=== PATIENT | male | born 1965 | race American Indian/Alaskan Native ===

== ENCOUNTER 2020-02-19 17:52 | Inpatient (IN) | payer MEDICAID ==
[~2020-02-19] VITALS: Ht 172.7 cm; Wt 68.2 kg
[~2020-02-19 17:52] MED LIST: CYCL-35 PO; CYCL-394 PO; DOCU-148 PO; HYDR-4383 PO; ONDA4TAB6 PO; PANT-47 PO; RANI-366 PO; ZOF4T PO
--- NOTE | 2020-02-19 17:55 | NUR ---
PAGED STROKE TEAM 17:55
[2020-02-19 18:18] LABS: BASOPHILS # (AUTO) 0.1 X10'3 (0-0.2); BASOPHILS % (AUTO) 1.1 % (0-1); EOSINOPHILS # (AUTO) 0.2 X10'3 (0-0.9); EOSINOPHILS % (AUTO) 2.3 % (0-6); HEMATOCRIT 39.7 % (42.0-52.0); HEMOGLOBIN 13.7 g/dl (14.0-17.9); LYMPHOCYTES # (AUTO) 2.2 X10'3 (1.1-4.8); LYMPHOCYTES % (AUTO) 24.8 % (21-51); MEAN CORPUSCULAR HEMOGLOBIN 31.7 PG (27.0-31.0); MEAN CORPUSCULAR HGB CONC 34.5 g/dL (33.0-36.5); MEAN PLATELET VOLUME 8.5 FL (7.4-10.4); MONOCYTES # (AUTO) 0.7 X10'3 (0-0.9); MONOCYTES % (AUTO) 8.3 % (2-12); NEUTROPHILS # (AUTO) 5.7 X10'3 (1.8-7.7); NEUTROPHILS % (AUTO) 63.5 % (42-75); PLATELET COUNT 302 X10'3 (140-440); RED BLOOD COUNT 4.31 X10'6 (4.70-6.10); RED CELL DISTRIBUTION WIDTH 14.5 % (11.5-14.5); WHITE BLOOD COUNT 8.9 X10'3 (4.5-11.0)
--- NOTE | 2020-02-19 18:20 | NUR ---
Arrived for level 1 stroke alert, last known well was 1630. Patient suddenly could not move and was unable to speak. Initial NIH was a 5 and now a 2. Telemedicine neurology evaluation completed.
[2020-02-19 18:23] LABS: PARTIAL THROMBOPLASTIN TIME 24 SECONDS (22-32)
--- NOTE | 2020-02-19 18:24 | NUR ---
ABDOUL STROKE RN AT BEDSIDE WITH EROS Hart AND PATIENTS SON FOR HX AND INFORMATION, CARMINE
[2020-02-19 18:26] LABS: ALANINE AMINOTRANSFERASE 32 U/L (12-78); ALBUMIN/GLOBULIN RATIO 1.1 (1.1-1.5); ALKALINE PHOSPHATASE 78 IU/L (46-116); ANION GAP 13 (8-16); ASPARTATE AMINO TRANSFERASE 37 U/L (10-37); BILIRUBIN,TOTAL 0.3 MG/DL (0.1-1.0); BLOOD UREA NITROGEN 21 MG/DL (7-18); BUN/CREATININE RATIO 16.2 (5.4-32.0); CALCIUM 8.9 MG/DL (8.5-10.1); CHLORIDE 104 MMOL/L (99-107); GLUCOSE 118 MG/DL (70-104); POTASSIUM 3.7 MMOL/L (3.5-5.1); SODIUM 140 MMOL/L (135-145); TOTAL CARBON DIOXIDE 23.2 MMOL/L (24-32); TOTAL PROTEIN 7.7 G/DL (6.4-8.2); eGFR 57 ML/MIN
--- NOTE | 2020-02-19 18:26 | NUR ---
PATIENT WITH TELE NEUROLOGIST WITH ABDOUL MODI STROKE RN AT BEDSIDE
[2020-02-19 18:29] LABS: TROPONIN I < 0.04 NG/ML (0.0-0.05)
[2020-02-19] MEDS ORDERED: iohexol 350MG/ML 100ml bottle IV ONE (18:39)
[2020-02-19] MEDS ORDERED: ATOR80TA PO (19:21)
[2020-02-19] MEDS ORDERED: FLUO20CA39 PO (19:21)
[2020-02-19] MEDS ORDERED: FERR325T28 PO (19:21)
[2020-02-19] MEDS ORDERED: MV-M1TAB19 PO (19:21)
[2020-02-19] MEDS ORDERED: ATEN-54 PO (19:21)
[2020-02-19] MEDS ORDERED: LISI40TA4 PO (19:21)
[2020-02-19] MEDS ORDERED: AMIT25TA10 PO (19:21)
[2020-02-19] MEDS ORDERED: NAPR-56 PO (19:21)
[2020-02-19] MEDS ORDERED: normal saline 1000ML IV soln IVB ONE (19:45)
[2020-02-19] MEDS ORDERED: clopidogrel 75mg tablet PO ONE (19:50)
[2020-02-19] MEDS ORDERED: aspirin 81mg tablet.DR PO ONE (19:50)
[2020-02-19] MEDS ORDERED: magnesium hydroxide 30ml (MOM) UD suspension PO PRN (20:05)
[2020-02-19] MEDS ORDERED: acetaminophen 325mg tablet PO PRN ×2 (20:05)
[2020-02-19] MEDS ORDERED: haloperidol 5mg tablet PO PRN (20:10)
[2020-02-19] MEDS ORDERED: thiamine inj. 100 MG in normal saline 100ml IV soln 100 ML IV ONE (20:10)
[2020-02-19] MEDS ORDERED: potassium CL 10mEq/100ml bag 100 ML IV PRN (20:10)
[2020-02-19] MEDS ORDERED: potassium Cl 20 mEq SR tablet PO PRN ×2 (20:10)
[2020-02-19 20:32] LABS: HEMOGLOBIN A1C 5.9 % (4.5-6.2)
[2020-02-19 20:45] VITALS: BP 170/89
[2020-02-19] MEDS ORDERED: nicotine 21mg patch - 24 hr TD ONE (21:05)
[2020-02-19] MEDS: atorvastatin 20mg tablet PO SCH (21:26)
[2020-02-19] MEDS: amitriptyline 25mg tablet PO SCH (21:26)
[2020-02-19] MEDS: normal saline 1000ml 1,000 ML IV SCH (21:45)
[2020-02-19] MEDS ORDERED: pneumococcal 23-VAL P-sac vacc 25 mcg/0.5ml vial IMVAC ONE (21:50)
[2020-02-20] VITALS (10 sets, daily range): BP systolic 113–170; BP diastolic 69–87
[2020-02-20] MEDS: LORazepam 2 mg/ml vial IV PRN ×2 (01:01→20:25)
[2020-02-20 05:51] LABS: BASOPHILS # (AUTO) 0.1 X10'3 (0-0.2); BASOPHILS % (AUTO) 0.9 % (0-1); EOSINOPHILS # (AUTO) 0.4 X10'3 (0-0.9); EOSINOPHILS % (AUTO) 5.5 % (0-6); HEMATOCRIT 36.8 % (42.0-52.0); HEMOGLOBIN 12.7 g/dl (14.0-17.9); LYMPHOCYTES # (AUTO) 2.2 X10'3 (1.1-4.8); LYMPHOCYTES % (AUTO) 27.8 % (21-51); MEAN CORPUSCULAR HEMOGLOBIN 31.6 PG (27.0-31.0); MEAN CORPUSCULAR HGB CONC 34.4 g/dL (33.0-36.5); MEAN CORPUSCULAR VOLUME 91.7 FL (78-98); MEAN PLATELET VOLUME 8.9 FL (7.4-10.4); MONOCYTES # (AUTO) 0.7 X10'3 (0-0.9); MONOCYTES % (AUTO) 9.3 % (2-12); NEUTROPHILS # (AUTO) 4.5 X10'3 (1.8-7.7); NEUTROPHILS % (AUTO) 56.5 % (42-75); PLATELET COUNT 227 X10'3 (140-440); RED BLOOD COUNT 4.02 X10'6 (4.70-6.10); RED CELL DISTRIBUTION WIDTH 14.4 % (11.5-14.5)
[2020-02-20 06:03] LABS: ALANINE AMINOTRANSFERASE 28 U/L (12-78); ALBUMIN 3.4 G/DL (3.4-5.0); ALBUMIN/GLOBULIN RATIO 1.1 (1.1-1.5); ALKALINE PHOSPHATASE 70 IU/L (46-116); AMYLASE 84 U/L (25-115); ANION GAP 9 (8-16); ASPARTATE AMINO TRANSFERASE 33 U/L (10-37); BILIRUBIN,TOTAL 0.6 MG/DL (0.1-1.0); BLOOD UREA NITROGEN 14 MG/DL (7-18); BUN/CREATININE RATIO 15.6 (5.4-32.0); CALCIUM 8.3 MG/DL (8.5-10.1); CHLORIDE 106 MMOL/L (99-107); CHOL/HDL RATIO 2.3 (0.00-4.99); CHOLESTEROL 104 MG/DL (0-200); GLUCOSE 94 MG/DL (70-104); HDL CHOLESTEROL 46 MG/DL (35-60); LDL CHOLESTEROL 47 MG/DL (50-100); LIPASE 529 U/L (73-393); MAGNESIUM 1.5 MG/DL (1.5-2.4); PHOSPHORUS 2.6 MG/DL (2.3-4.5); POTASSIUM 3.6 MMOL/L (3.5-5.1); SODIUM 138 MMOL/L (135-145); TOTAL CARBON DIOXIDE 22.9 MMOL/L (24-32); TOTAL PROTEIN 6.6 G/DL (6.4-8.2); TRIGLYCERIDES 37 MG/DL (20-135); eGFR 87 ML/MIN
[2020-02-20] MEDS ORDERED: folic acid 1mg/0.2ml inj IV SCH (08:00)
[2020-02-20] MEDS: multivitamins, therapeutics tablet PO SCH (09:22)
[2020-02-20] MEDS: thiamine 100mg tablet PO SCH (09:22)
[2020-02-20] MEDS: clopidogrel 75mg tablet PO SCH (09:23)
[2020-02-20] MEDS: FLUoxetine 20mg capsule PO SCH (09:23)
[2020-02-20] MEDS: docusate sod 100mg capsule PO SCH ×2 (09:23→19:26)
[2020-02-20] MEDS: folic acid 1mg tablet PO SCH (09:24)
[2020-02-20] MEDS: aspirin 325mg tablet PO SCH (09:24)
[2020-02-20] MEDS: normal saline 1000ml 1,000 ML IV SCH ×2 (09:35→23:49)
[2020-02-20] MEDS ORDERED: MVI, adult No.4 with vit. K 10 ML in dextrose 5% water 500ml 500 ML IV SCH ×2 (10:00)
[2020-02-20] MEDS ORDERED: thiamine inj. 100 MG in normal saline 100ml IV soln 99 ML IV SCH (10:00)
--- NOTE | 2020-02-20 11:19 | NUR ---
gave report [place] MODI on tele
--- NOTE | 2020-02-20 11:20 | NUR ---
Patient in room PCU 3027. I have received report from Tiffany MODI and had the opportunity to ask questions and assume patient care.
--- NOTE | 2020-02-20 17:00 | NUR ---
Patient in room PCU 3027. I have received report from LY Marie and had the opportunity to ask questions and assume patient care.
--- NOTE | 2020-02-20 17:08 | NUR ---
Patient in room PCU 3027. I have received report from Cynthia MODI and had the opportunity to ask questions and assume patient care.
--- NOTE | 2020-02-20 18:10 | NUR ---
Patient in room PCU 3027. I have received report from Humaira Chavez RN and had the opportunity to ask questions and assume patient care.
--- NOTE | 2020-02-20 18:26 | NUR ---
Problems reprioritized. Patient report given, questions answered & plan of care reviewed with LY Mariscal. Explained patient has weakness in extremities, and numbness. All patient needs met at this time.
[2020-02-20] MEDS: amitriptyline 25mg tablet PO SCH (20:25)
[2020-02-20] MEDS: atorvastatin 20mg tablet PO SCH (20:25)
[2020-02-21] VITALS: BP 130/76
[2020-02-21 02:00] VITALS: BP 128/80
[2020-02-21 04:00] VITALS: BP 118/81
[2020-02-21 05:55] LABS: BASOPHILS # (AUTO) 0.1 X10'3 (0-0.2); BASOPHILS % (AUTO) 1.1 % (0-1); EOSINOPHILS # (AUTO) 0.4 X10'3 (0-0.9); EOSINOPHILS % (AUTO) 4.7 % (0-6); HEMATOCRIT 36.1 % (42.0-52.0); HEMOGLOBIN 12.4 g/dl (14.0-17.9); LYMPHOCYTES # (AUTO) 1.6 X10'3 (1.1-4.8); LYMPHOCYTES % (AUTO) 18.4 % (21-51); MEAN CORPUSCULAR HEMOGLOBIN 31.5 PG (27.0-31.0); MEAN CORPUSCULAR HGB CONC 34.3 g/dL (33.0-36.5); MEAN CORPUSCULAR VOLUME 91.9 FL (78-98); MEAN PLATELET VOLUME 8.7 FL (7.4-10.4); MONOCYTES # (AUTO) 0.6 X10'3 (0-0.9); NEUTROPHILS # (AUTO) 6.1 X10'3 (1.8-7.7); NEUTROPHILS % (AUTO) 68.8 % (42-75); PLATELET COUNT 230 X10'3 (140-440); RED BLOOD COUNT 3.92 X10'6 (4.70-6.10); RED CELL DISTRIBUTION WIDTH 14.5 % (11.5-14.5); WHITE BLOOD COUNT 8.9 X10'3 (4.5-11.0)
[2020-02-21 06:00] VITALS: BP 130/73
--- NOTE | 2020-02-21 06:30 | NUR ---
Patient in room PCU 3027. I have received report from LY Mariscal and had the opportunity to ask questions and assume patient care.
[2020-02-21 06:34] LABS: ALANINE AMINOTRANSFERASE 25 U/L (12-78); ALBUMIN 3.3 G/DL (3.4-5.0); ALKALINE PHOSPHATASE 67 IU/L (46-116); AMYLASE 64 U/L (25-115); ANION GAP 8 (8-16); ASPARTATE AMINO TRANSFERASE 22 U/L (10-37); BILIRUBIN,TOTAL 0.4 MG/DL (0.1-1.0); BLOOD UREA NITROGEN 10 MG/DL (7-18); BUN/CREATININE RATIO 11.5 (5.4-32.0); CALCIUM 8.8 MG/DL (8.5-10.1); CHLORIDE 104 MMOL/L (99-107); CREATININE 0.87 MG/DL (0.60-1.10); GLUCOSE 106 MG/DL (70-104); LIPASE 253 U/L (73-393); PHOSPHORUS 3.3 MG/DL (2.3-4.5); POTASSIUM 3.8 MMOL/L (3.5-5.1); SODIUM 136 MMOL/L (135-145); TOTAL CARBON DIOXIDE 23.9 MMOL/L (24-32); TOTAL PROTEIN 6.5 G/DL (6.4-8.2); eGFR > 90 ML/MIN
--- NOTE | 2020-02-21 06:36 | NUR ---
Patient in room PCU 3027. I have received report from Rigo MODI and had the opportunity to ask questions and assume patient care.
--- NOTE | 2020-02-21 06:37 | NUR ---
Problems reprioritized. Patient report given, questions answered & plan of care reviewed with LY Beard.
[2020-02-21] MEDS: docusate sod 100mg capsule PO SCH (07:36)
[2020-02-21] MEDS: multivitamins, therapeutics tablet PO SCH (07:36)
[2020-02-21] MEDS: folic acid 1mg tablet PO SCH (07:37)
[2020-02-21] MEDS: aspirin 325mg tablet PO SCH (07:37)
[2020-02-21] MEDS: FLUoxetine 20mg capsule PO SCH (07:37)
[2020-02-21] MEDS: clopidogrel 75mg tablet PO SCH (07:37)
[2020-02-21] MEDS: thiamine 100mg tablet PO SCH (07:37)
[2020-02-21 11:00] VITALS: BP 107/71
[2020-02-21] MEDS ORDERED: CLOP75TA15 PO (12:01)
[2020-02-21] MEDS ORDERED: ASPI81TA30 PO (12:01)
--- NOTE | 2020-02-21 13:45 | NUR ---
Stable for discharge per MD orders. All discharge instructions reviewed with patient and all questions answered. New prescriptions were called into [facility] in [place], [place]. groundwater monitoring technician discontinued. Belongings collected and sent with patient. Patient wheeled to the [facility] via wheelchair accompanied by LY Beard. Patient armbands cut at time of discharge. Patient's friend was awaiting in Private vehicle. Private vehicle was driven off the premises. Addendum: 02/21/20 at 1832 by Chirag Jarvis RN Stable for discharge per MD orders. All discharge instructions reviewed with patient and all questions answered. New prescriptions were called into [facility] in [place], [place]. groundwater monitoring technician discontinued and returned to [facility]. IV's removed, canula's intact. Belongings collected and sent with patient. Patient wheeled to the [facility] via wheelchair accompanied by LY Beard. Patient armbands cut at time of discharge. Patient's friend was awaiting in Private vehicle. Private vehicle was driven off the premises.
--- NOTE | 2020-02-21 18:00 | NUR ---
Orientee documentation: I have reviewed and agree with all interventions, assessments performed and documented by Nani Martinez RN.
== END 2020-02-21 13:47 | disposition home or self-care (01) | DRG 45 ==
LOC: ER 17:52 → ED HOLD 20:02 → ORTHO 4S 20:54 → PCU 3S 02-20 11:48
PROVIDERS: ADMIT Family Medicine; ATTEND Family Medicine
PROC: 3E0234Z Introduction of Serum, Toxoid and Vaccine into Muscle, Percutaneous Approach (ICD-10-PCS; principal; 2020-02-19)
PROC: B3251ZZ Computerized Tomography (CT Scan) of Bilateral Common Carotid Arteries using Low Osmolar Contrast (ICD-10-PCS; 2020-02-19)
PROC: B32G1ZZ Computerized Tomography (CT Scan) of Bilateral Vertebral Arteries using Low Osmolar Contrast (ICD-10-PCS; 2020-02-19)
PROC: B3281ZZ Computerized Tomography (CT Scan) of Bilateral Internal Carotid Arteries using Low Osmolar Contrast (ICD-10-PCS; 2020-02-19)
DX: I63.20 Cerebral infarction due to unspecified occlusion or stenosis of unspecified precerebral arteries (principal); E78.5 Hyperlipidemia, unspecified; M54.9 Dorsalgia, unspecified; F10.288 Alcohol dependence with other alcohol-induced disorder; F32.9 Major depressive disorder, single episode, unspecified; G89.29 Other chronic pain; F17.210 Nicotine dependence, cigarettes, uncomplicated; I10 Essential (primary) hypertension; Z86.73 Personal history of transient ischemic attack (TIA), and cerebral infarction without residual deficits; Z23 Encounter for immunization; Z90.49 Acquired absence of other specified parts of digestive tract; Z79.899 Other long term (current) drug therapy
CPT/HCPCS: 36415; 70450; 70496; 70498; 70544; 70551; 71045; 80053; 80061; 82150; 82948; 83036; 83690; 83735; 84100; 84484; 85025; 85610; 85730; 87081; 90732; 92508; 92616; 93005; 93306; 93880; 97110; 97116; 97162; 99291; 99292; G0378; J2060; J3411; J7030; Q9967